=== PATIENT | female | born 1950 | race Caucasian/White ===

== ENCOUNTER 2017-06-27 12:04 | Inpatient (IN) | payer OTHER ==
[~2017-06-27] VITALS: Ht 175.3 cm; Wt 54.4 kg
[2017-06-27] VITALS (10 sets, daily range): BP systolic 133–164; BP diastolic 51–86
--- NOTE | ~2017-06-27 | O ---
[facility] [place] [address] OPERATIVE REPORT Name: JUANPABLO BOTELLO Room #: 402-P [facility] M.R.#: [id number] Admission: 06/27/17 Attend Phys: Gino Lee MD Discharge: 06/29/17 Date of : 52 Report #: [id number] THIS REPORT FOR: //name// CC: Curly Lee DATE OF SERVICE: 06/27/2017 PREOPERATIVE DIAGNOSIS: Left displaced proximal third humerus fracture. POSTOPERATIVE DIAGNOSIS: Left displaced proximal third humerus fracture. PROCEDURE: ORIF left proximal third humerus fracture. SURGEON: Gino Lee MD. LABOR SERVICE REPRESENTATIVE: Amy Maldonado PA-C INDICATION FOR LABOR SERVICE REPRESENTATIVE: Throughout the case extensive retraction and manipulation of the arm was required. This was afforded to me by my itinerant teacher assistant. ANESTHESIA: General endotracheal. IMPLANTS: Synthes 8-hole proximal humerus locking plate with multiple locking and cortical screws. ESTIMATED BLOOD LOSS: 100 mL. COMPLICATIONS: None. SPECIMENS: None. CONDITION UPON LEAVING THE OR: Stable. INDICATION FOR PROCEDURE: The patient is a 66-year-old female who fell and sustained a left proximal third and long oblique humerus fracture. She was initially seen by a different orthopedic surgeon and was initially treated closed. She came to me for a second opinion using a Somers brace. Her x-rays at that time showed her to have a significantly displaced proximal third humerus fracture without extension into the humeral head. She had at least 75% displacement of her fracture and she was having significant pain. After discussion with her including continued close management versus ORIF, she elected for ORIF. DESCRIPTION OF PROCEDURE: Risks, benefits, alternatives, complications were discussed in detail with the patient including but not limited to risk of [facility] [address] [place] [address] OPERATIVE REPORT Name: JUANPABLO BOTELLO Room #: 402-P [facility] M.R.#: [id number] Admission: 06/27/17 Attend Phys: Gino Lee MD Discharge: 06/29/17 Date of : 52 Report #: [id number] anesthesia; risk of damage to nerves, arteries, blood vessels; risk for infection, bleeding; risk for continued arm pain, malunion, nonunion and need for reoperation. Informed consent was obtained from the patient. The left shoulder was appropriately marked in the preoperative holding area. IV clindamycin was given for preoperative antibiotics. She was brought to the operating room and placed in supine position on operating room table. General endotracheal anesthesia was induced without complication. Left upper extremity and shoulder were then prepped and draped in normal sterile fashion. Timeout was performed properly identifying the patient and procedure as well as the instrumentation and implants. All in the operating room were in agreement. Given the long oblique nature of this fracture, it was decided to do an extended deltopectoral approach into an anterolateral approach of the humerus. Incision was made with 10-blade through the skin. Dissection was taken down first in the deltopectoral interval and the cephalic vein was identified and dissected out and retracted medially. The deltopectoral fascia was then bluntly opened and the deltoid was bluntly elevated off the proximal humerus. The dissection was then taken down distally and deltoid insertion was taken off partially anteriorly. The biceps musculature was identified and retracted medially and the brachialis muscle was split longitudinally down to the humerus bone. The fracture went from anterior distal to posterior proximal and there was significant displacement and some early well-defined hematoma. Fracture ends were curetted out. Care was taken to protect the axillary nerve posteriorly. Bony ends were thoroughly irrigated and the fracture fragments were then held reduced manually and had an excellent reduction. A [id number] reduction forceps were then placed and three anteromedial to posterolateral locking screws were placed for compression across the fracture. An 8-hole proximal humeral locking plate was then positioned under fluoroscopic imaging and 5 proximal locking screws were placed, 1 distal cortical screw and 2 distal locking screws were placed. After this, fluoroscopic imaging was brought in to verify adequate fracture reduction and placement of hardware. Wound was thoroughly irrigated with normal saline and the fascia was closed with 0 Vicryl, skin was closed with 2-0 Vicryl, skin yasmany, soft dressing of Adaptic, 4 x 4, ABD, and Medipore tape were applied. The patient tolerated this procedure well and went to the recovery room under the care of anesthesia postoperatively. <ELECTRONICALLY SIGNED> By: Gino Lee MD 07/01/17 1009 1717 1845 Gino Lee MD /nt
[2017-06-28 03:42] VITALS: BP 115/53
[2017-06-28 07:23] LABS: HEMATOCRIT 37.8 % (37.0-47.0); HEMOGLOBIN 12.7 gm/dL (12.0-15.0)
[2017-06-28 07:51] VITALS: BP 104/47
[2017-06-28] MEDS ORDERED: MS CONTIN15 MG PO (11:11)
[2017-06-28] MEDS ORDERED: PERCOCET PO (11:12)
[2017-06-28 16:00] VITALS: BP 110/56
[2017-06-28 20:00] VITALS: BP 112/56
[2017-06-29 04:00] VITALS: BP 120/51
[2017-06-29 08:00] VITALS: BP 125/52
[2017-06-29 12:57] VITALS: BP 125/52
== END 2017-06-29 13:30 | disposition home or self-care (01) | DRG 493 ==
LOC: OR 12:04 → 4N 18:18 → OR 18:19 → 4N 06-29 13:30 → ENTRNSPT 06-29 13:36 → EDTRNSPTSTS 06-29 13:38
PROVIDERS: Orthopaedic Surgery
PROC: 0PSD04Z Reposition Left Humeral Head with Internal Fixation Device, Open Approach (ICD-10-PCS; principal; 2017-06-27)
DX: S49.002A Unspecified physeal fracture of upper end of humerus, left arm, initial encounter for closed fracture (principal); Z68.1 Body mass index [BMI] 19.9 or less, adult; W18.30XA Fall on same level, unspecified, initial encounter; Y93.89 Activity, other specified; Y92.89 Other specified places as the place of occurrence of the external cause; Y99.8 Other external cause status; Z88.0 Allergy status to penicillin; Z88.5 Allergy status to narcotic agent; R63.0 Anorexia
CPT/HCPCS: 10790; 50010; 50101; 50341; 50386; 50417; 50567; 51412; 51739; 55430; 56528; 56530; 56667; 62110; 62900; 70005

== ENCOUNTER 2018-02-02 05:31 | Day surgery (SDC) | payer OTHER ==
[~2018-02-02] VITALS: Ht 175.3 cm; Wt 67.6 kg
--- NOTE | ~2018-02-02 | O ---
[facility] [place] [address] OPERATIVE REPORT Name: JUANPABLO BOTELLO Room #: DEP [facility] M.R.#: [id number] Admission: 02/02/18 Attend Phys: Gino Lee MD Discharge: 02/02/18 Date of : 52 Report #: [id number] THIS REPORT FOR: //name// CC: Curly Lee DATE OF SERVICE: 02/02/2018 PREOPERATIVE DIAGNOSIS: Painful hardware, left humerus. POSTOPERATIVE DIAGNOSIS: Painful hardware, left humerus. PROCEDURE: Hardware removal, left humerus. SURGEON: Gino Lee MD EXCHANGE SPECIALIST: Amy Maldonado PA-C ANESTHESIA: General endotracheal. ESTIMATED BLOOD LOSS: 25 mL. COMPLICATIONS: None. SPECIMENS: None. CONDITION UPON LEAVING THE OPERATING ROOM: Stable. INDICATIONS FOR PROCEDURE: The patient is a 67-year-old female who is over 6 months out from a previous ORIF of her humerus fracture. She is a very thin female and has had continued hardware appearing femoral plate and after discussion with her regarding options, she elected for hardware removal. DESCRIPTION OF PROCEDURE: Risks, benefits, alternatives, complications were discussed in detail with the patient including but not limited to risk of anesthesia, risk of damage to nerves, arteries, blood vessels, risk for infection, bleeding, risk for continued arm pain and refracture. Informed consent was obtained from the patient. Left upper extremity was appropriately marked in the preoperative holding area. IV Ancef was given for preoperative antibiotics. She was brought to the operating room and placed in supine position on the operating room table. General endotracheal anesthesia was induced without complication. The left shoulder and upper extremity were prepped and draped in normal sterile fashion. Timeout was performed properly identifying the patient and procedure as well as the instrumentation. All in the operating room were in agreement. The previous scar was used and this was opened with 10 blade through the skin to the adipose layer. This was then [facility] [address] [place] [address] OPERATIVE REPORT Name: JUANPABLO BOTELLO Room #: DEP [facility] Fely#: [id number] Admission: 02/02/18 Attend Phys: Gino Lee MD Discharge: 02/02/18 Date of : 52 Report #: [id number] dissected proximally for deltopectoral approach and transition to anterolateral approach to the humerus. The plate was easily palpable under the musculature and this was dissected out and the proximal and distal screws through the plate were removed. The plate was then removed using a Dunham elevator. There are also 3 interfragmentary screws underneath the plate. They were removed with screwdriver. After verification of removal, the wound was thoroughly irrigated with normal saline and deep fascia was closed with 0 Vicryl, skin was closed with 2-0 Vicryl, 3-0 Monocryl and Dermabond dressing was applied. Aquacel was applied. The patient tolerated this procedure well and went to recovery room under care of anesthesia postoperatively. <ELECTRONICALLY SIGNED> By: Gino Lee MD 02/04/18 0822 1101 1119 Gino Lee MD /nt
--- NOTE | ~2018-02-02 | EKG ---
[address] [address] ELECTROCARDIOGRAM REPORT Name: JUANPABLO BOTELLO Room #: [facility].#: [id number] Admission: 02/02/18 Attend Phys: Gino Lee MD Discharge: 02/02/18 Date of : 52 Report #: [id number] THIS REPORT FOR: //name// [facility] Test Date: 2018-02-02 Test Time: 08:37:18 Pat Name: JUANPABLO BOTELLO Department: Room: 150 6 Gender: F Marketing Admin: JENNIFER : 1950 Requested By: Gino Lee Order Number: [id number] MD: Gilbert Roberts Measurements Intervals Ruth Rate: 67 P: 59 AL: 150 QRS: 55 QRSD: 95 T: 83 QT: 412 QTc: 435 Interpretive Statements Sinus rhythm Normal tracing No previous ECG available for comparison Electronically Signed On 02-03-2018 7:24:30 CDT by Gilbert Roberts [email or web address] <ELECTRONICALLY SIGNED> By: Gilbert Roberts MD, [facility] 02/03/18 0724 0837 0837 Gilbert Roberts MD, FACC /EPI
[~2018-02-02 05:31] MED LIST: COREG25 MG PO; MS CONTIN15 MG PO; PERCOCET PO
[2018-02-02 09:04] VITALS: BP 140/66
[2018-02-02 11:08] VITALS: BP 140/66
== END 2018-02-02 12:18 | disposition home or self-care (01) ==
LOC: OR 05:31 → TBA 05:31 → OR 12:18
DX: T84.84XA Pain due to internal orthopedic prosthetic devices, implants and grafts, initial encounter (principal); M79.622 Pain in left upper arm; I10 Essential (primary) hypertension; J43.9 Emphysema, unspecified; F17.210 Nicotine dependence, cigarettes, uncomplicated; Z90.49 Acquired absence of other specified parts of digestive tract; Z90.710 Acquired absence of both cervix and uterus; Z98.890 Other specified postprocedural states; Z88.0 Allergy status to penicillin; Z88.8 Allergy status to other drugs, medicaments and biological substances; Z79.899 Other long term (current) drug therapy; Y83.8 Other surgical procedures as the cause of abnormal reaction of the patient, or of later complication, without mention of misadventure at the time of the procedure
CPT/HCPCS: 50010; 50101; 50386; 50417; 52256; 54118; 56526; 56528; 62110; 62900; 70005